=== PATIENT | female | born 1985 | race Hispanic/Latino ===

== ENCOUNTER 2021-02-05 22:51 | Emergency (ER) | payer SELFPAY ==
[2021-02-05] MEDS ORDERED: LIDOCAINE HCL-MPF 1% 2ML VIAL ONE (23:13)
[2021-02-05] MEDS ORDERED: CEFTRIAXONE SODIUM 1 GM ONE (23:13)
[2021-02-05] MEDS ORDERED: KETOROLAC TROMETHAMINE 30MG/ML ONE (23:13)
[2021-02-05] MEDS ORDERED: PHENAZOPYRIDINE HCL 200 MG TABLET ONE (23:15)
[2021-02-05 23:17] LABS: APPEARANCE,URINE Clear (CLEAR); BILIRUBIN,URINE Negative (NEGATIVE); COLOR,URINE Yellow (YELLOW); GLUCOSE, URINE (UA) >=1000 mg/dL (NEGATIVE); KETONES,URINE Negative (NEGATIVE); LEUKOCYTE ESTERASE ,URINE Moderate (NEGATIVE); NITRATE,URINE Negative (NEGATIVE); OCCULT BLOOD,URINE Small (NEGATIVE); PROTEIN,URINE POS 1+ mg/dL (NEGATIVE); UROBILINOGEN,URINE 0.2 mg/dL (0.2-1.0)
[2021-02-05 23:26] LABS: HCG,QUAL RESULT NEGATIVE (NEGATIVE)
[2021-02-05 23:55] LABS: BACTERIA,URINE Moderate /HPF (None Seen); WBC,URINE 26-50 /HPF (0-1)
== END 2021-02-05 23:46 | disposition home or self-care (01) ==
LOC: EDH 22:51
DX: N39.0 Urinary tract infection, site not specified (principal)
CPT/HCPCS: 81001; 81025; 82948; 87077; 87088; 87186; 96372 ×2; 99284; J0696; J1885; J3490

== ENCOUNTER 2024-08-02 13:57 | Emergency (ER) | payer SELFPAY ==
[~2024-08-02] VITALS: Ht 142.2 cm; Wt 53.5 kg
--- NOTE | 2024-08-02 14:31 | ERN ---
General Chief Complaint: Abdominal Pain Stated Complaint: ABD PAIN Time Seen by MD: 14:00 History of Present Illness Initial Comments 38-year-old female, history of diabetes, presents for diarrhea and lower abdominal tenderness and pain for the last five days. Patient reports she has had 12+ episodes of watery diarrhea for the last five days. She reports that yesterday she had some blood in the stool. She reports nausea without vomiting. No fevers. She reports lower abdominal cramping and tenderness. She went to a doctor in [place] and had an unknown injection but she continues with symptoms. Allergies: Coded Allergies: No Known Drug Allergies (Unverified Allergy, Unknown, 07/29/15) Past Medical History Past Medical History: No Pertinent History Past Surgical History: Female( History) LMP: Jul 20, 2024 ROS Dictation CONSTITUTIONAL: No chills, no fever, no weakness, no diaphoresis, no malaise. HEAD/FACE: No signs of trauma. EENT: No eye pain, no blurred vision, no tearing, no double vision, no ear pain, no ear discharge, no nose pain, no nasal congestion, no throat pain, no throat swelling, no mouth pain. RESPIRATORY: No cough, no orthopnea, no SOB, no stridor, no wheezing. CARDIOVASCULAR: No chest pain, no edema, no palpitations, no syncope. GASTROINTESTINAL/ABDOMINAL: Lower abdominal pain, lower abdominal cramping, diarrhea GENITOURINARY: No abnormal discharge, no dysuria, no frequent urination, no hematuria. No complaints of pain in the genitals. MUSCULOSKELETAL: No back pain, no gout, no joint pain, no joint swelling, no muscle pain, no muscle stiffness, no neck pain. INTEGUMENTARY: No change in color, no change in hair/nails, no dryness, no lesion, no lumps, no rash. NEUROLOGICAL/PSYCH: No anxiety, not depressed, no emotional problem, no headache, no numbness, no pre-existing deficit, no history of seizures, no tremors, no weakness. HEMATOLOGIC/LYMPHATIC: Not anemic, no history of blood clots, no apparent bleeding, no bruising, glands not swollen. All Systems Negative, Except as Noted. Physical Exam Physical Exam Dictation VITAL SIGNS: Reviewed. GENERAL APPEARANCE: Alert, oriented x3, no acute distress. HEAD AND FACE: Non-traumatic. EYES: PERRL, pink conjunctivas, eyelid no trauma, anterior chamber clear. EARS: Pinnas intact and no signs of trauma or erythema. Ear canals clear and no discharge. TMs no erythema. NOSE: No discharge, no bleeding. OROPHARYNX: Mouth normal, teeth no caries, tongue pink. Pharynx clear, no erythema. Tonsils no exudates, no abscesses noted. Mucous membrane moist. NECK: Supple, non-tender, no thyromegaly, no masses, no JVD, no bruits. BREAST: Deferred. CHEST: No tenderness, no crepitus, no paradoxical movement, no retractions. LUNGS: Clear, well-ventilated, symmetric, no rales, no wheezing, no rhonchi, no stridor, good breath sounds bilaterally. HEART: Regular rate, regular rhythm, no murmur, no gallops. VASCULAR: No peripheral edema. ABDOMEN: Moderate lower abdominal tenderness RECTAL: Deferred. GENITAL: Deferred. NEUROLOGICAL: Normal speech, gross motor function intact, gross sensory function intact. MUSCULOSKELETAL: Neck nontender, full range of motion, back nontender, full range of motion. EXTREMITIES: Nontender, full range of motion. SKIN: Color pink, dry, no turgor, no rash, no lacerations, no abrasions, no contusions. LYMPHATICS: Deferred. Results Laboratory and Microbiology Lab and Micro Result Laboratory Tests Test 08/02/24 14:20 08/02/24 14:21 Urine Color LIGHT-YELLOW (YELLOW) Urine Appearance CLEAR (CLEAR) Urine pH 7.0 (5.0-8.0) Urine Specific [place] 1.036 (1.001-1.031) Urine Protein NEGATIVE mg/dL (NEGATIVE) Urine Glucose (UA) >=1000 mg/dL (NEGATIVE) H Urine Ketones NEGATIVE mg/dL (NEGATIVE) Urine Occult Blood NEGATIVE (NEGATIVE) Urine Nitrate NEGATIVE (NEGATIVE) Urine Bilirubin NEGATIVE mg/dL (NEGATIVE) Urine Urobilinogen 0.2 mg/dL (0.2-1.0) Urine Leukocyte Esterase NEGATIVE Harvey/uL Urine RBC 0-1 /HPF (0-1) Urine WBC 2-5 /HPF (0-1) H Urine Squamous Epithelial Cells FEW /HPF (0-2) Urine Bacteria None /HPF (None Seen) Urine HCG, Qualitative NEGATIVE (NEGATIVE) C. difficile Antigen and Toxins A,B See comments (NEG) White Blood Count 8.0 K/uL (4.8-10.8) Red Blood Count 4.74 MIL/uL (4.00-5.50) Hemoglobin 12.5 g/dL (12.0-16.0) Hematocrit 38.1 % (36-48) Mean Corpuscular Volume 80.4 fL (79-99) Mean Corpuscular Hemoglobin 26.4 pg (27.0-33.0) L Mean Corpuscular Hemoglobin Concent 32.8 g/dL (32.0-36.0) Red Cell Distribution Width 14.8 % (11.0-15.5) Platelet Count 601 K/uL (130-400) H Mean Platelet Volume 9.3 fL (7.5-10.5) Immature Granulocyte % (Auto) 1.4 % (0-1) H Neutrophils (%) (Auto) 49.3 % (40.0-77.0) Lymphocytes (%) (Auto) 36.8 % (21.0-51.0) Monocytes (%) (Auto) 8.9 % (3.0-13.0) Eosinophils (%) (Auto) 3.1 % (0.0-8.0) Basophils (%) (Auto) 0.5 % (0.0-5.0) Neutrophils # (Auto) 3.9 K/uL (1.8-7.7) Lymphocytes # (Auto) 2.9 K/uL (1.0-4.8) Monocytes # (Auto) 0.7 K/uL (0.1-1.0) Eosinophils # (Auto) 0.25 K/uL (0.00-0.70) Basophils # (Auto) 0.04 K/uL (0.00-0.20) Absolute Immature Granulocyte (auto 0.11 K/uL (0-1) Segmented Neutrophils % 48 % (40-70) Band Neutrophils % 8 % (0-2) H Lymphocytes % (Manual) 39 % (22-44) Monocytes % (Manual) 4 % (2-9) Eosinophils % (Manual) 1 % (1-6) Nucleated Red Blood Cells 0.0 % (0.0-0.19) Differential Comment MANUAL DIFFERENTIAL White Cell Morphology Comment CONSISTENT W/DIFF Platelet Morphology Comment INCREASED Red Blood Cell Morphology ANISO 1+ Sodium Level 132 mmol/L (136-145) L Potassium Level 3.7 mmol/L (3.5-5.1) Chloride Level 98 mmol/L (101-111) L Carbon Dioxide Level 28 mmol/L (21-32) Blood Urea Nitrogen 7 mg/dL (7-18) Creatinine 0.8 mg/dL (0.5-1.0) Glomerular Filtration Rate Calc 96 mL/min (>90) Random Glucose 327 mg/dL (70-105) H Total Calcium 9.1 mg/dL (8.5-10.1) Lipase 23 U/L (16-77) MDM CC: Diarrhea watery x5 days with some bloody stool Historian: Patient Comorbidities: Diabetes Limitations by social determinants of health: Uninsured Vital signs: Stable Differential diagnosis: Diarrheal illness, surgical pathology, dehydration, electrolyte abnormality, other. Labs (independently ordered and interpreted by me ): No leukocytosis, no shift. She does have a thrombocytopenia consistent with inflammation, also has a mild elevation of the bands.Chemistry panel is normal. She does have elevated gluc ose. Lipase is normal. Urinalysis shows glucose otherwise unremarkable. C diff negative CT scan of the abdomen and pelvis with contrast ( independently interpreted by me): No free air surgical pathology. Patient received 1 L normal saline in the ER. Since she is having bloody stool has been prolonged for over five days, we will treat with antibiotics. I did send a GI PCR which is pending result. We will send with Bactrim. We will also recommend loperamide and probiotics. REASON: lower abd tenderness, diarrhea ORDERING PHYSICIAN: TERRY CHRISTINA DO PROCEDURE: ABD PEL W - CT ABDOMEN/PELVIS W/CONTRAST Exam Type: CT ABDOMEN/PELVIS W/CONTRAST Clinical Information: lower abd tenderness, diarrhea Comparison: None Contrast: 100 cc's Isovue 370 IV, no complications or adverse reactions CT Dose Index (CTDI): 31.60 mGy Dose Length Product (DLP): 1740.80 total mGy-cm Findings: No evidence of nephro or ureterolithiasis is found. No hydronephrosis or ureteral dilatation is seen. The lung bases are clear. The stomach is unremarkable. It shows no wall thickening. No gross ulceration is seen. It is not overly distended. There are no surrounding inflammatory changes. No wall lesions are identified to suggest cancer. ED Course Orders Procedure Category Date Status Time 0.9%Nacl 1000ml (Ns PHA 08/02/24 Complete 1000ml) 14:30 Cbc With Differential LAB 08/02/24 Complete 14:12 ,Urine Test LAB 08/02/24 Complete 14:12 Urinalysis Profile LAB 08/02/24 Complete 14:12 Lipase LAB 08/02/24 Complete 14:12 Basic Metabolic Panel LAB 08/02/24 Complete 14:12 Ct Abdomen/Pelvis CT 08/02/24 Resulted W/Contrast 14:27 Stool Panel Gi By Pcr LAB 08/02/24 In Process 14:27 C Difficile A/B LAB 08/02/24 Complete 14:27 Iohexol (Omnipaque) PHA 08/02/24 Complete 14:38 Manual Differential LAB 08/02/24 Complete 14:21 Current Medications Medications (Trade) Dose Ordered Sig/Siabel Route PRN Reason Start Time Stop Time Status Last Admin Dose Admin Iohexol (Omnipaque) 75 ml STK-MED ONCE IV 08/02/24 14:38 08/02/24 14:38 DC Sodium Chloride 1,000 ml @ 0 mls/hr ONCE ONCE IV 08/02/24 14:30 08/02/24 14:31 DC 08/02/24 15:14 Vital Signs Date Time Temp Pulse Resp B/P (MAP) Pulse Ox O2 Delivery O2 Flow Rate FiO2 08/02/24 17:12 98.2 84 18 131/91 97 Room Air* 0 08/02/24 16:29 98.2 93 18 150/94 100 Room Air* 0 08/02/24 14:08 98.2 83 18 135/92 100 Room Air* 0 08/02/24 13:59 97.9 90 18 146/101 99 Room Air DX & DISP Disposition: Discharge Departure Impression: Primary Impression: Intestinal infection due to bacteria causing bloody diarrhea Condition: Stable Scripts Loperamide HCl (Loperamide) 2 Mg Tablet 1 TAB PO Q4H for loose stool for 10 Days, #30 TAB 0 Refills Prov: TERRY CHRISTINA DO 08/02/24 Sulfamethoxazole/Trimethoprim (Bactrim Ds Tablet) 800 Mg-160 Mg Tablet 1 TAB PO BID for 7 Days, #14 TAB 0 Refills Prov: TERRY CHRISTINA DO 08/02/24 Additional Instructions: Your symptoms are consistent with bacterial diarrheal illness. I have prescribed antibiotics (Bactrim). Take this twice per day for the next five days. I recommend that you take loperamide 2 mg every 4 hours as needed for diarrhea. I have given you a prescription for this medicine. I recommend that you try probiotics such as lactobacilli. You can purchase this at [facility] or a [employer] food store. I recommend the BRAT diet (bananas, rice, applesauce, toast). Advance her diet slowly as tolerated after that. Avoid caffeine, raw fruit, and lactose based foods. Your lab work (CBC, BMP, lipase, urinalysis) shows an elevated blood glucose level but is otherwise unremarkable. The CT scan of your abdomen and pelvis does not show any dangerous findings. The C diff toxin stool study was unremarkable. I recommend that you follow up with her primary doctor. Please return to the emergency department if you have any concerns. Referrals: NONE (PCP) TERRY CHRISTINA DO Aug 02, 2024 14:31
--- NOTE | 2024-08-02 14:34 | NUR ---
PENDING GFR, TEST RESULTS, IV SITE, & CONSENT FOR CT EXAM.
[2024-08-02] MEDS ORDERED: IOHEXOL-350 75 ML VIAL IV ONE (14:38)
[2024-08-02 14:56] LABS: BASOPHILS # (AUTO) 0.04 K/uL (0.00-0.20); BASOPHILS % (AUTO) 0.5 % (0.0-5.0); EOSINOPHILS # (AUTO) 0.25 K/uL (0.00-0.70); EOSINOPHILS % (AUTO) 3.1 % (0.0-8.0); HEMATOCRIT 38.1 % (36-48); IMMATURE GRANULOCYTE ABSOLUTE 0.11 K/uL (0-1); LYMPHOCYTES # (AUTO) 2.9 K/uL (1.0-4.8); LYMPHOCYTES % (AUTO) 36.8 % (21.0-51.0); MEAN CORPUSCULAR HEMOGLOBIN 26.4 pg (27.0-33.0); MEAN CORPUSCULAR HGB CONC 32.8 g/dL (32.0-36.0); MEAN CORPUSCULAR VOLUME 80.4 fL (79-99); MONOCYTES # (AUTO) 0.7 K/uL (0.1-1.0); MONOCYTES % (AUTO) 8.9 % (3.0-13.0); NEUTROPHILS # (AUTO) 3.9 K/uL (1.8-7.7); NEUTROPHILS % (AUTO) 49.3 % (40.0-77.0); PLATELET COUNT (AUTO) 601 K/uL (130-400); RED BLOOD CELL COUNT(AUTO) 4.74 MIL/uL (4.00-5.50); RED CELL DISTRIBUTION WIDTH 14.8 % (11.0-15.5)
[2024-08-02 15:09] LABS: CREATININE 0.8 mg/dL (0.5-1.0); POTASSIUM 3.7 mmol/L (3.5-5.1)
[2024-08-02] MEDS: 0.9%NACL 1000ML 1,000 ML IV ONE (15:14)
--- NOTE | 2024-08-02 15:27 | NUR ---
STILL PENDING TEST RESULTS FOR CT EXAM.
[2024-08-02 15:28] LABS: HCG,QUALITATIVE URINE NEGATIVE (NEGATIVE)
[2024-08-02 15:30] LABS: APPEARANCE,URINE CLEAR (CLEAR); BILIRUBIN,URINE NEGATIVE (NEGATIVE); COLOR,URINE LIGHT-YELLOW (YELLOW); GLUCOSE, URINE (UA) >=1000 mg/dL (NEGATIVE); KETONES,URINE NEGATIVE (NEGATIVE); LEUKOCYTE ESTERASE ,URINE NEGATIVE Leu/uL (NEGATIVE); NITRATE,URINE NEGATIVE (NEGATIVE); OCCULT BLOOD,URINE NEGATIVE (NEGATIVE); PROTEIN,URINE NEGATIVE (NEGATIVE); UROBILINOGEN,URINE 0.2 mg/dL (0.2-1.0)
[2024-08-02 15:49] LABS: ADD UA MICROSCOPIC YES; RBC,URINE 0-1 /HPF (0-1); SQUAMOUS EPITHELIAL CELL,UR FEW /HPF (0-2)
--- NOTE | 2024-08-02 16:09 | HMCIMG ---
Exam Type: CT ABDOMEN/PELVIS W/CONTRAST Clinical Information: lower abd tenderness, diarrhea Comparison: None Contrast: 100 cc's Isovue 370 IV, no complications or adverse reactions CT Dose Index (CTDI): 31.60 mGy Dose Length Product (DLP): 1740.80 total mGy-cm Findings: No evidence of nephro or ureterolithiasis is found. No hydronephrosis or ureteral dilatation is seen. The lung bases are clear. The stomach is unremarkable. It shows no wall thickening. No gross ulceration is seen. It is not overly distended. There are no surrounding inflammatory changes. No wall lesions are identified to suggest cancer. The spleen is unremarkable. It is not enlarged. The pancreas shows normal anatomy. It is not fatty replaced. It shows no lesions. The pancreatic duct is not dilated. The gallbladder is unremarkable. It shows no cholelithiasis. The gallbladder wall is normal in thickness. There is no pericholecystic fluid. The is no acute or chronic inflammation noted. The adrenal glands are unremarkable. There is no enlargement. No lesions are noted. The liver is unremarkable. It shows no focal masses. The appendix is unremarkable. It shows no evidence of inflammation. No appendicolith is seen. The small bowel is unremarkable. There is no evidence of dilatation to suggest obstruction. No evidence of adynamic ileus is seen. There is no small bowel wall thickening to suggest enteritis. The colon is unremarkable. The urinary bladder is unremarkable. There is no wall thickening to suggest tumor or inflammation. There are no intraluminal calculi. There are no diverticula. There is no evidence of chronic bladder outlet obstruction. There is no evidence of urinary bladder distention to suggest urinary retention. The other pelvic structures are unremarkable. The bony and vascular structures are unremarkable for the patient's age. IMPRESSION: NEGATIVE CT SCAN OF THE ABDOMEN AND PELVIS WITH ORAL AND IV CONTRAST. This study was performed using dose reduction techniques to include automated exposure control and/or adjustment of the mA and/or kV according to patient size.
[2024-08-02 16:18] LABS: BAND NEUTROPHILS % (MANUAL) 8 % (0-2); EOSINOPHILS % (MANUAL) 1 % (1-6); LYMPHOCYTES % (MANUAL) 39 % (22-44); MAN.DIFF COMMENT-IMPRESSION MANUAL DIFFERENTIAL; MONOCYTES % (MANUAL) 4 % (2-9); PLATELET MORPHOLOGY COMMENT INCREASED; SEGMENTED NEUTROPHILS % 48 % (40-70); TOTAL CELLS COUNTED 100; WBC MORPHOLOGY CONSISTENT W/DIFF
[2024-08-02] MEDS ORDERED: SULF1TAB42 PO (17:52)
[2024-08-02] MEDS ORDERED: LOPE2TAB26 PO (17:52)
[2024-08-02 17:57] VITALS: BP 136/88; PULSE 81; RESP 18; TEMP 98.2; O2SAT 98
[2024-08-05 04:12] LABS: C DIFFICILE TOXIN A/B Not Detected (Not Detected); ENTEROAGGREGATIVE ECOLI Not Detected (Not Detected); GIARDIA LAMBLIA Not Detected (Not Detected); PLESIOMONAS SHIGELOIDES Not Detected (Not Detected); SAPOVIRUS Not Detected (Not Detected); SHIGELLA/ENTEROINVASIVE E COLI Not Detected (Not Detected); VIBRIO Not Detected (Not Detected); VIBRIO CHOLERAE Not Detected (Not Detected)
== END 2024-08-02 18:35 | disposition home or self-care (01) ==
LOC: EDH 13:57
DX: A04.9 Bacterial intestinal infection, unspecified (principal); R19.7 Diarrhea, unspecified
CPT/HCPCS: 99285; 74177; 96360; 80048; 83690; 85025; 81001; 81025; 36415; 87507; 87324; J7030; Q9967